=== PATIENT | male | born 1945 | race Caucasian/White ===

== ENCOUNTER 2023-10-29 09:44 | Inpatient (IN) | payer MEDICARE ==
[~2023-10-29] VITALS: Ht 175.3 cm; Wt 87.1 kg
[2023-10-29] VITALS (7 sets, daily range): BP systolic 107–129; BP diastolic 66–73; TEMP 97.7–99; O2SAT 90–96
[~2023-10-29 09:44] MED LIST: ATOR1TAB21 PO; D3 S20002 PO; DAPS25TA PO; ECOT81TA5 PO; FLUO15CR3 TOP; LIDOCAINE 2% 100MG/5ML SDV (FOR ANES.) As Ordered ONE; LOSA25TA13 PO; MAGN400C PO; METO1TAB32 PO; PANT40TA29 PO; PRED10PA2 PO; ROCURONIUM BROMIDE 50MG/5ML VIAL As Ordered ONE; TRIA1CR80 TOP; fentaNYL 100 MCG/2 ML INJECTION As Ordered ONE; propofoL 200 MG/20 ML VIAL As Ordered ONE
[2023-10-29] MEDS ORDERED: PANT20TA51 PO (10:57)
[2023-10-29] MEDS ORDERED: VITA1CHW7 PO (10:57)
[2023-10-29] MEDS ORDERED: HOME MED LIST COMPLETE! XX SCH (11:00)
[2023-10-29] MEDS ORDERED: ONDANSETRON 4MG 2ML VIAL IV PRN ×2 (11:10→14:55)
[2023-10-29] MEDS ORDERED: PERCOCET 5MG/325MG TAB PO PRN ×2 (11:10)
[2023-10-29] MEDS: LR 1,000 ML IV SCH ×2 (11:19→14:55)
[2023-10-29] MEDS: ceFAZolin SOD 2 GM in IV 1 EA IV ONE (11:44)
[2023-10-29] MEDS ORDERED: HYDROmorphone HCL 2MG/ML 1ML VIAL As Ordered ONE (11:46)
[2023-10-29] MEDS: HEPARIN SOD (PORCINE) 5000UNITS/ML 1ML VIAL/SYRINGE SQ ONE (11:48)
[2023-10-29] MEDS ORDERED: ATROPINE SULF 0.4 MG/ML 1ML VIAL As Ordered ONE (12:02)
[2023-10-29] MEDS ORDERED: GLYCOPYRROLATE INJ 0.2 MG/ML 2 ML VIAL As Ordered ONE (12:07)
[2023-10-29] MEDS ORDERED: ePHEDrine SULFATE 25 MG/5 ML(5MG/ML) SYRINGE As Ordered ONE (12:08)
[2023-10-29] MEDS ORDERED: ACETAMINOPHEN 1000MG 100ML IV BAG As Ordered ONE (12:22)
[2023-10-29] MEDS ORDERED: ONDANSETRON 4MG 2ML VIAL As Ordered ONE (12:22)
[2023-10-29] MEDS: LIDOCAINE 1% SDV 30ML VIAL As Ordered ONE (14:45)
[2023-10-29] MEDS ORDERED: fentaNYL 100 MCG/2 ML INJECTION IV PRN (14:55)
[2023-10-29] MEDS ORDERED: HYDROMORPHONE HCL 0.5 MG/ 0.5 ML SYRINGE IV PRN (14:55)
[2023-10-29] MEDS: oxyCODONE 5MG TAB PO PRN (15:40)
[2023-10-29 16:08] LABS: HEMATOCRIT 36.5 % (42.0-52.0); MEAN CORPUSCULAR HEMOGLOBIN 32.9 pg (27.0-33.0); MEAN CORPUSCULAR HGB CONC 32.9 g/dl (32.0-36.5); PLATELET COUNT, AUTOMATED 169 10^3/uL (150-450); RED BLOOD COUNT 3.65 10^6/uL (4.30-6.10); WHITE BLOOD COUNT 11.6 10^3/uL (4.0-10.0)
[2023-10-29 16:29] LABS: BLOOD UREA NITROGEN 15 MG/DL (9-23); CALCIUM LEVEL 8.3 MG/DL (8.3-10.6); CARBON DIOXIDE LEVEL 27 MMOL/L (20-31); CHLORIDE LEVEL 105 MMOL/L (98-107); CREATININE FOR GFR 0.95 MG/DL (0.70-1.30); GLOMERULAR FILTRATION RATE > 60.0 (>42); GLUCOSE, FASTING 103 MG/DL (74-106); POTASSIUM SERUM 4.2 MMOL/L (3.5-5.1); SODIUM LEVEL 137 MMOL/L (136-145)
[2023-10-29] MEDS: NS 1,000 ML IV SCH (16:40)
[2023-10-29] MEDS: ceFAZolin SOD 1 GM in D5W MINI-BAG PLUS 50 ML IV SCH (18:32)
[2023-10-29] MEDS: DOCUSATE SODIUM 100MG CAPSULE PO SCH (21:19)
[2023-10-29] MEDS: HEPARIN SOD (PORCINE) 5000UNITS/ML 1ML VIAL/SYRINGE SC SCH (21:19)
[2023-10-29] MEDS: ACETAMINOPHEN TAB 650MG DOSE (2X325MG) PO PRN (22:14)
[2023-10-30 02:34] VITALS: BP 103/51; TEMP 98.6; O2SAT 95
[2023-10-30 06:00] VITALS: BP_SYST 145; BP_SYST 149; BP_DIAS 72; BP_DIAS 74; TEMP 98.8; O2SAT 96
[2023-10-30 07:08] LABS: HEMOGLOBIN 11.3 g/dl (13.5-17.5); MEAN CORPUSCULAR HEMOGLOBIN 33.2 pg (27.0-33.0); MEAN CORPUSCULAR HGB CONC 33.2 g/dl (32.0-36.5); PLATELET COUNT, AUTOMATED 183 10^3/uL (150-450); WHITE BLOOD COUNT 12.1 10^3/uL (4.0-10.0)
[2023-10-30 07:19] LABS: BLOOD UREA NITROGEN 16 MG/DL (9-23); CALCIUM LEVEL 8.4 MG/DL (8.3-10.6); CARBON DIOXIDE LEVEL 27 MMOL/L (20-31); CHLORIDE LEVEL 107 MMOL/L (98-107); CREATININE FOR GFR 1.13 MG/DL (0.70-1.30); GLOMERULAR FILTRATION RATE > 60.0 (>42); GLUCOSE, FASTING 90 MG/DL (74-106); POTASSIUM SERUM 4.1 MMOL/L (3.5-5.1); SODIUM LEVEL 138 MMOL/L (136-145)
[2023-10-30 08:19] VITALS: BP 142/75
[2023-10-30 08:36] VITALS: BP 142/75
[2023-10-30] MEDS: PANTOPRAZOLE 20 MG TAB PO SCH (08:36)
[2023-10-30] MEDS: ATORVASTATIN 20 MG TAB PO SCH (08:36)
[2023-10-30] MEDS: METOPROLOL SUCC *XL* 12.5MG PER 1/2 TAB (TopROL *XL*) PO SCH (08:36)
[2023-10-30] MEDS: LOSARTAN 25 MG TAB PO SCH (08:36)
[2023-10-30] MEDS: DAPSONE 100 MG TAB PO SCH (08:37)
[2023-10-30 12:00] VITALS: BP 130/74; TEMP 98.8; O2SAT 95
[2023-10-30] MEDS ORDERED: PERCOCET PO (16:20)
[2023-10-30] MEDS ORDERED: COLA100C5 PO (16:20)
[2023-10-30] MEDS ORDERED: CIPR-249 PO (16:20)
== END 2023-10-30 16:45 | disposition home or self-care (01) | DRG 708 ==
LOC: M OR 09:44 → M MS5PR 16:20
PROVIDERS: ADMIT Urology; ATTEND Urology
PROC: 8E0W4CZ Robotic Assisted Procedure of Trunk Region, Percutaneous Endoscopic Approach (ICD-10-PCS; 2023-10-29)
PROC: 0VT04ZZ Resection of Prostate, Percutaneous Endoscopic Approach (ICD-10-PCS; principal; 2023-10-29 12:00)
DX: C61 Malignant neoplasm of prostate (principal); Z88.8 Allergy status to other drugs, medicaments and biological substances; I10 Essential (primary) hypertension; K21.9 Gastro-esophageal reflux disease without esophagitis; I25.10 Atherosclerotic heart disease of native coronary artery without angina pectoris; Z95.2 Presence of prosthetic heart valve; Z79.899 Other long term (current) drug therapy; Z79.82 Long term (current) use of aspirin